=== PATIENT | female | born 1950 | race Caucasian/White ===

== ENCOUNTER → 2020-08-05 | Outpatient (CLI) | payer MEDICARE, SELFPAY ==
[~2020-08-05] MED LIST: AZITHROMYCIN500 MG PO; CEFPODOXIME PR200 MG PO; ESTRADERM 0.05 M1 EA TD; LACTINEX TABLET1 EA PO; LATANOPROST2.5 ML OP; MUCINEX600 MG PO; PAXIL20 MG PO; PEPCID40 MG PO; PROTONIX40 MG PO; RESTASIS1 EACH OP; VISTARIL25 MG PO; VITAMIN B-121000 MC3 PO; VITAMIN D 11000 UNIT PO; XYZAL5 MG PO
== END ==
LOC: US 06:53
DX: R17 Unspecified jaundice (principal)
CPT/HCPCS: 76705